=== PATIENT | female | born 1960 | race Caucasian/White ===

== ENCOUNTER 2017-10-06 11:36 | Emergency (ER) | payer BC ==
[2017-10-06] MEDS ORDERED: KETOROLAC TROMETHAMINE 60 MG/2 ML VIAL IM ONE ×2 (12:21→12:33)
[2017-10-06 12:35] LABS: Urine Bilirubin Negative (NEGATIVE); Urine Ketone Negative (NEGATIVE); Urine Nitrite Negative (NEGATIVE); Urine Protein Negative (NEGATIVE); Urine Specific Gravity 1.025 SP.GR. (1.005-1.010); Urine Urobilinogen Normal (NORMAL)
[2017-10-06 12:42] LABS: Urine Appearance Slightly Cloudy; Urine Bacteria 2+; Urine Blood 5 /ul (NEGATIVE); Urine Color Dark Yellow; Urine RBC None Seen /hpf (0-5); Urine WBC 0-5 /hpf (0-5)
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
[2017-10-06] MEDS ORDERED: NORMAL SALINE 1,000 ML IV ONE (14:25)
[2017-10-06 14:45] LABS: Hematocrit 41.1 % (37.0-47.0); Hemoglobin 13.4 gm/dL (12.5-16.0); Mean Corpuscular Hgb Conc 32.6 g/dl (32-36); Mean Platelet Volume 10.7 fl (6.0-9.5); Platelet Count 285 K/mm3 (150-450); Red Blood Count 4.78 M/mm3 (4.2-5.4); Red Cell Distribution Width 13.8 % (11.5-14.0); White Blood Count 27.2 K/mm3 (4.0-10.5)
[2017-10-06 14:54] LABS: Total Cells Counted 100
[2017-10-06] MEDS ORDERED: LEVOFLOXACIN/D5W 750 MG/150 ML BAG IV ONE (14:56)
[2017-10-06 14:59] LABS: Albumin * 3.9 gm/dl (3.4-5.0); Anion Gap 14.7 mmol/L (6.8-13.8); BUN/Creatinine Ratio 19.8 (9.0-21.6); Bilirubin, Total 0.9 mg/dL (0.0-1.1); Ca. Corrected For Albumin 8.7 mg/dL (8.4-10.2); Calcium * 8.9 mg/dL (7.9-10.9); Carbon Dioxide 28.9 mmol/L (24-32.6); Potassium 3.6 mmol/L (3.4-4.6); Total Protein 7.5 gm/dL (6.2-8.2)
[2017-10-06] MEDS ORDERED: metroNIDAZOLE/SODIUM CHLORIDE 500 MG/100 ML BAG IV SCH (15:00)
[2017-10-06 15:27] LABS: Band 2 % (0-2.0); Lymphocyte 2 % (20-51); Monocyte 5 % (0-9); Neutrophil 91 % (42-75); Neutrophil # 24.8 K/mm3 (1.3-6.0)
[2017-10-06 15:28] LABS: Platelet Estimate Normal (NORMAL); RBC Morphology Normal (NORMAL)
[2017-10-06] MEDS ORDERED: PIPERACILLIN SODIUM/TAZOBACTAM 3.375 GM in DEXTROSE 5 % IN WATER 100 ML IV ONE ×2 (16:08)
[2017-10-06] MEDS ORDERED: fentaNYL CITRATE/PF 50 MCG/ML AMPUL ONE (16:27)
[2017-10-06] MEDS ORDERED: fentaNYL CITRATE/PF 50 MCG/ML AMPUL IV ONE (16:28)
[2017-10-06 16:34] VITALS: BP 159/75
== END 2017-10-06 16:40 | disposition short-term general hospital (02) ==
LOC: ER 11:36
DX: K57.20 Diverticulitis of large intestine with perforation and abscess without bleeding (principal); D64.9 Anemia, unspecified; M19.90 Unspecified osteoarthritis, unspecified site; I10 Essential (primary) hypertension